=== PATIENT | male | born 1955 | race Caucasian/White ===

== ENCOUNTER 2020-05-05 10:02 | Outpatient (CLI) | payer MEDICARE, BC, SELFPAY ==
--- NOTE | ~2020-05-05 | XR_ITS ---
EXAMINATION: XR chest 2V EXAM DATE: 05/05/2020 10:22 INDICATION: Shortness of breath. TECHNIQUE: Frontal and lateral projections of the chest obtained and reviewed. There is no prior iron dy for comparison. FINDINGS: The lungs are clear. There are no pleural effusions. The cardiomediastinal silhouette is within normal limits. There is no pneumothorax suspected. Patient has diffuse idiopathic skeletal h yperostosis (DISH). IMPRESSION: No acute cardiopulmonary findings. Reviewed, dictated and finalized at location B.
--- NOTE | 2020-05-05 10:21 | ECG_ITS ---
Measurements Intervals [place] Rate: 59 P: 47 NE: 175 QRS: -19 QRSD: 95 T: 18 QT: 404 QTc: 402 Interpretive Statements SINUS BRADYCARDIA DELAYED PRECORDIAL R/S TRANSITION BORDERLINE T WAVE ABNORMALITY- INFERIOR LEADS BASELINE WANDER- V3 BORDERLINE ECG Electronically Signed On 05-05-2020 10:52:38 CDT by Kenneth Thomas D.O.
== END 2020-05-05 10:03 | disposition home or self-care (01) ==
PROVIDERS: PCP Family Medicine; Visit Provider Nurse Practitioner Family
DX: R73.03 Prediabetes (principal); R06.02 Shortness of breath; R06.00 Dyspnea, unspecified; R94.31 Abnormal electrocardiogram [ECG] [EKG]
CPT/HCPCS: 71046; 93005

== ENCOUNTER 2020-05-14 13:26 | Outpatient (CLI) | payer MEDICARE, BC, SELFPAY ==
--- NOTE | 2020-05-14 13:32 | ECHO_ITS ---
Patient Info Name: Jacob Palmer Age: 64 years : 1955 Gender: Male Ht: 66 in Wt: 243 lbs BSA: 2.32 m2 HR: 59 bpm BP: 150 / 96 mmHg Technical Quality: Good Exam Date: 05/14/2020 1:43 PM Exam Location: [facility] Patient Status: Outpatient Admit Date: 05/14/2020 Staff Ordering Physician: Karri Carlos NP Vice Admiral: Farshad Richardson RDCS, RT Attending Provider: Karri Carlos NP Referring Physician: Terrance KAY; Exam Type: CA echo doppler color flow Study Info Indications R06.02 - Shortness of breath Complete two-dimensional, color flow and Doppler transthoracic echocardiogram is performed. Summary 1. Complete two-dimensional, color flow and Doppler transthoracic echocardiogram is performed. 2. Left ventricular chamber dimension is normal. 3. Ventricular septum is sigmoid shaped. Very mild resting LVOT obstruction with peak gradient at 9 mmHg and mean gradient at 4 mmHg suggests hypertrophic cardiomyopathy. 4. Left ventricular systolic function is hyperdynamic, estimated at >70%. 5. There is mildly increased left ventricular wall thickness. 6. The left ventricular diastolic function is grade I diastolic dysfunction. 7. E/e' 12 is mildly elevated. 8. Global longitudinal strain is abnormal at -15.4%. 9. Left atrial chamber dimension is mildly enlarged. 10. The mitral valve has moderately calcified leaflets and moderately calcified posterior annulus. 11. No pulmonary hypertension, estimated pulmonary arterial systolic pressure is 36 mmHg. Left Ventricle E/e' 12 is mildly elevated. Global longitudinal strain is abnormal at -15.4%. Ventricular septum is sigmoid shaped. Very mild resting LVOT obstruction with peak gradient at 9 mmHg and mean gradient at 4 mmHg suggests hypertrophic cardiomyopathy. Left ventricular chamber dimension is normal. Left ventricular systolic function is hyperdynamic, estimated at >70%. There is mildly increased left ventricular wall thickness. The left ventricular diastolic function is grade I diastolic dysfunction. Right Ventricle Right ventricular chamber dimension is normal. Right ventricular systolic function is normal. Left Atria Left atrial chamber dimension is mildly enlarged. Right Atria Right atrial chamber dimension is normal. Aortic Valve There is no aortic valve stenosis based on valve area and gradients. Cannot determine number of aortic valve leaflets. The aortic valve is not well visualized. There is no aortic valve regurgitation. Pulmonic Valve There is no pulmonic regurgitation. Mitral Valve The mitral valve has moderately calcified leaflets and moderately calcified posterior annulus. There is no mitral valve stenosis. There is no mitral valve regurgitation. Tricuspid Valve There is no tricuspid valve regurgitation. No pulmonary hypertension, estimated pulmonary arterial systolic pressure is 36 mmHg. Pericardium/Pleural There is no pericardial effusion. Inferior Vena Cava Normal inferior vena cava with >50% collapse upon inspiration consistent with normal right atrial pressure, 5 mmHg. Aorta The aortic root size at the sinus of Valsalva is normal. Left Ventricular Outflow Tract Name Value Normal LVOT 2D
== END 2020-05-14 13:27 | disposition home or self-care (01) ==
LOC: ANHCARD 13:27
PROVIDERS: PCP Family Medicine; Visit Provider Nurse Practitioner Family
DX: R06.02 Shortness of breath (principal); R94.31 Abnormal electrocardiogram [ECG] [EKG]
CPT/HCPCS: 93306

== ENCOUNTER → 2021-05-04 03:21 | Outpatient (CLI) | payer MEDICARE, BC, SELFPAY ==
[2021-05-04 19:13] LABS: SARS-CoV-2 RNA PCR Negative
== END ==
PROVIDERS: PCP Family Medicine; Visit Provider Nurse Practitioner Family
DX: Z20.822 Contact with and (suspected) exposure to COVID-19 (principal)
CPT/HCPCS: C9803; U0003; U0005

== ENCOUNTER 2021-05-17 07:31 | Outpatient (CLI) | payer MEDICARE, BC, SELFPAY ==
--- NOTE | 2021-05-17 07:41 | ECHO_ITS ---
Patient Info Name: Jacob Palmer Age: 65 years : 1955 Gender: Male Ht: 66 in Wt: 238 lbs BSA: 2.29 m2 HR: 73 bpm BP: 120 / 74 mmHg Heart Rhythm: Atrial Fibrillation Technical Quality: Good Exam Date: 05/17/2021 7:56 AM Exam Location: [facility] Patient Status: Outpatient Admit Date: 05/17/2021 Staff Ordering Physician: Kenneth Thomas DO Teacher Dramatics: Geovanna Cisneros RDCS Attending Provider: Kenneth Thomas DO Referring Physician: William FISHER; Exam Type: CA echo doppler color flow Study Info Indications I51.7 - Cardiomegaly Complete two-dimensional, color flow and Doppler transthoracic echocardiogram is performed. Summary 1. Complete two-dimensional, color flow and Doppler transthoracic echocardiogram is performed. 2. Left ventricular chamber dimension is normal. 3. Left ventricular systolic function is normal, estimated at 60-65%. 4. There is mildly increased left ventricular wall thickness. 5. The left ventricular diastolic function is normal. 6. E/e' 7 is not elevated. 7. Atrial fibrillation. 8. Left atrial chamber dimension is mildly enlarged. 9. There is moderate aortic valve sclerosis. 10. The mitral valve has moderately calcified annulus. 11. There is trace mitral valve regurgitation. 12. No pulmonary hypertension, estimated pulmonary arterial systolic pressure is 27 mmHg. Left Ventricle Atrial fibrillation. E/e' 7 is not elevated. Left ventricular chamber dimension is normal. Left ventricular systolic function is normal, estimated at 60-65%. There is mildly increased left ventricular wall thickness. The left ventricular diastolic function is normal. Right Ventricle Right ventricular systolic function is normal and with normal TAPSE 1.8 cm. Right ventricular chamber dimension is normal. Left Atria Left atrial chamber dimension is mildly enlarged. Right Atria Right atrial chamber dimension is normal. Aortic Valve The aortic valve is trileaflet. There is moderate aortic valve sclerosis. There is no aortic valve stenosis. There is no aortic valve regurgitation. Pulmonic Valve There is no pulmonic regurgitation. Mitral Valve The mitral valve has moderately calcified annulus. There is no mitral valve stenosis. There is trace mitral valve regurgitation. Tricuspid Valve There is no tricuspid valve regurgitation. No pulmonary hypertension, estimated pulmonary arterial systolic pressure is 27 mmHg. Pericardium/Pleural There is no pericardial effusion. Inferior Vena Cava Normal inferior vena cava with >50% collapse upon inspiration consistent with normal right atrial pressure, 5 mmHg. Aorta The aortic root size at the sinus of Valsalva is normal. Left Ventricular Outflow Tract Name Value Normal LVOT 2D LVOT Diameter 2.0 cm LVOT Doppler LVOT Peak Gradient 6 mmHg LVOT Mean Gradient 3 mmHg LVOT VTI 27 cm LVOT VTI/AV VTI Ratio 1.0 LVOT Stroke Volume 82 ml LVOT CO
== END 2021-05-17 07:32 | disposition home or self-care (01) ==
LOC: ANHCARD 07:33
PROVIDERS: PCP Family Medicine; Visit Provider Internal Medicine Cardiovascular Disease
DX: I51.7 Cardiomegaly (principal); I48.91 Unspecified atrial fibrillation
CPT/HCPCS: 93306

== ENCOUNTER 2021-05-24 15:00 | Outpatient (CLI) | payer MEDICARE, BC, SELFPAY ==
--- NOTE | ~2021-05-24 | CT_ITS ---
EXAMINATION: CT abdomen pelvis w con DATE: 05/24/2021 15:35 INDICATION: Right lower quadrant pain TECHNIQUE: Computed tomography (CT) of the abdomen and pelvis was performed with 100 cc Omnipaque 350 intravenous contrast. The dose-length product was 1462.74 mGy-cm. Automated exposure control and ite rative reconstruction technique were employed. COMPARISON: CT dated 12/16/2016. FINDINGS: There is a 5 mm right middle lobe nodule. There is calcified nodule in the left lower lobe, consistent with chronic granulomatous disease. Small hiatal hernia. The spleen, pancreas, adrenal gl ands are unremarkable. Gallbladder is present. Normal appendix. There are bilateral renal cysts. Gallbladder is present. Fatty infiltration of the liver. There are l iver cysts. The spleen, pancreas, adrenal glands are unremarkable. Bowel pattern is nonobstructive. M oderate lumbar spondylosis with grade 1 degenerative spondylolisthesis. There is a 2 mm nonobstructin g left renal stone. No free air or free fluid. Bladder wall is mildly prominent, although not well di stended. IMPRESSION: 1. No acute abdominal abnormality. Normal appendix. 2: Right middle lobe nodule measuring 5 mm. Recommend follow-up low dose CT chest in 12 months. 3: Liver and renal cysts. 4: Nonobstructing left nephrolithiasis. 5: Mild bladder wall thickening which may be due to underdistention, although cystitis is not exclud ed. Consider correlation with urinalysis. Reviewed, dictated and finalized at location A. IMPRESSION: 1. No acute abdominal abnormality. Normal appendix. 2: Right middle lobe nodule measuring 5 mm. Recommend follow-up low dose CT [facility] in 12 months. 3: Liver and renal cysts. 4: Nonobstructing left nephrolithiasis. 5: Mild bladder wall thickening which may be due to underdistention, although cystitis is not excluded. Consider correlation with urinalysis.
[2021-05-24 15:32] LABS: Estimated Glomerular Filt Rate > 60
== END 2021-05-24 15:01 | disposition home or self-care (01) ==
LOC: ANHIMG 15:04
PROVIDERS: PCP Family Medicine; Visit Provider Nurse Practitioner Family
DX: R10.31 Right lower quadrant pain (principal); R91.1 Solitary pulmonary nodule; K76.89 Other specified diseases of liver; N28.1 Cyst of kidney, acquired; N20.0 Calculus of kidney; R93.41 Abnormal radiologic findings on diagnostic imaging of renal pelvis, ureter, or bladder
CPT/HCPCS: 74177; Q9967

== ENCOUNTER 2022-01-04 08:20 | Outpatient (CLI) | payer MEDICARE, BC, SELFPAY ==
--- NOTE | 2022-01-04 08:24 | EST_ITS ---
Patient Info Name: Jacob Palmer Age: 66 years : 1955 Gender: Male Ht: 68 in Wt: 268 lbs BSA: 2.47 m2 HR: 57 bpm BP: 144 / 79 mmHg Heart Rhythm: Sinus Rhythm Exam Date: 01/04/2022 8:45 AM Exam Location: [facility] Stress Patient Status: Outpatient Admit Date: 01/04/2022 Staff Ordering Physician: Kenneth Thomas DO Attending Provider: Kenneth Thomas DO Exercise Technologist: Kasey Martinez CT Exercise Physician: Kenneth Thomas DO Exam Type: CA stress test treadmill Study Info Indications R07.9 - Chest pain, unspecified A treadmill exercise stress test was performed. Summary 1. 1. Negative [place] exercise stress test for ischemic ST changes by ECG criteria. 2. 2. Reduced functional capacity, achieving 7.7 METs of workload. 3. 3. Baseline hypertension. 4. 4. Appropriate HR response to exercise. 5. 5. Appropriate HR recovery at 1 minute post exercise. 6. 6. No imaging with stress testing. 7. 7. Patient informed of the above results. Protocol: [place] Stress ECG Details Stage: REST Duration (min): 1 min : 27 sec Speed (mph): 0.0 Grade (%): 0 HR (bpm): 57 SBP (mmHg): 144 DBP (mmHg): 79 METS: --- Stage: REST Duration (min): 13 min : 57 sec Speed (mph): 0.0 Grade (%): 0 HR (bpm): 62 SBP (mmHg): 144 DBP (mmHg): 79 METS: --- Stage: STAGE 1 Duration (min): 1 min : 0 sec Speed (mph): 1.7 Grade (%): 10 HR (bpm): 82 SBP (mmHg): 144 DBP (mmHg): 79 METS: --- Stage: STAGE 1 Duration (min): 2 min : 0 sec Speed (mph): 1.7 Grade (%): 10 HR (bpm): 91 SBP (mmHg): 144 DBP (mmHg): 79 METS: --- Stage: STAGE 1 Duration (min): 3 min : 0 sec Speed (mph): 1.7 Grade (%): 10 HR (bpm): 96 SBP (mmHg): 156 DBP (mmHg): 69 METS: --- Stage: STAGE 2 Duration (min): 1 min : 0 sec Speed (mph): 2.5 Grade (%): 12 HR (bpm): 108 SBP (mmHg): 156 DBP (mmHg): 69 METS: --- Stage: STAGE 2 Duration (min): 2 min : 0 sec Speed (mph): 2.5 Grade (%): 12 HR (bpm): 116 SBP (mmHg): 156 DBP (mmHg): 69 METS: --- Stage: STAGE 2 Duration (min): 3 min : 0 sec Speed (mph): 2.5 Grade (%): 12 HR (bpm): 122 SBP (mmHg): 167 DBP (mmHg): 70 METS: --- Stage: STAGE 3 Duration (min): 0 min : 26 sec Speed (mph): 3.4 Grade (%): 14 HR (bpm): 133 SBP (mmHg): 167 DBP (mmHg): 70 METS: --- Stage: RECOVERY Duration (min): 0 min : 33 sec Speed (mph): 0.0 Grade (%): 0 HR (bpm): 116 SBP (mmHg): 167 DBP (mmHg): 70 METS: --- Stage: RECOVERY Duration (min): 1 min : 33 sec Speed (mph): 0.0 Grade (%): 0 HR (bpm): 86 SBP (mmHg): 169 DBP (mmHg): 72 METS: --- Stage: RECOVERY Duration (min): 2 min : 33 sec Speed (mph): 0.0 Grade (%): 0 HR (bpm): 71 SBP (mmHg): 169 DBP (mmHg): 72 METS: ---
== END 2022-01-04 08:21 | disposition home or self-care (01) ==
LOC: ANHCARD 08:22
PROVIDERS: PCP Family Medicine; Visit Provider Internal Medicine Cardiovascular Disease
DX: R07.89 Other chest pain (principal)
CPT/HCPCS: 93017

== ENCOUNTER 2023-10-04 00:19 | Day surgery (SDC) | payer MEDICARE, BC, SELFPAY ==
[2023-09-21 13:57] VITALS: BMI 40.4
--- NOTE | 2023-10-02 09:49 | SUR.PREOP ---
Patient called regarding upcoming procedure. Reviewed preop instructions, appointment times, and procedure prep.
[2023-10-04 07:41] VITALS: BP 141/82; PULSE 62; RESP 20; TEMP 36.3; O2SAT 98
[2023-10-04] MEDS: LACTATED RINGERS 1,000 ML 150 ML IV CONT (07:45)
[2023-10-04 07:53] LABS: Glucose Point of Care 127 mg/dl (65-105)
--- NOTE | 2023-10-04 08:16 | WPDANESEPPF ---
Anes - Initial Pre Proc Eval Procedure: Operation Date: 10/04/23 09:00 Proposed Procedures p Esophagogastroduodenoscopy & Colonoscopy - Rogelio Clay MD Date/Time: 10/04/23 08:16 Surgeon: Rogelio Clay MD Pre Op Diagnosis: neoplasm screening, Dysphagia Patient Data Age: 68 Gender: M Height: 1.68 m Weight: 106 kg Last Vital Signs Temp 97.4 F L 10/04/23 07:41 Pulse 62 10/04/23 07:41 Resp 20 10/04/23 07:41 BP 141/82 H 10/04/23 07:41 Pulse Ox 98 10/04/23 07:41 O2 Del Method Room Air 10/04/23 07:41 Allergies Allergy/AdvReac Type Severity Reaction Status Date / Time No Known Allergies Allergy Verified 10/04/23 07:39 Home Medications Medication Instructions Recorded Confirmed Type aspirin 325 mg tablet,delayed 325 mg PO DAILY 06/09/22 10/04/23 History release metoprolol succinate 25 mg See Rx Instructions .Route 01/18/23 10/04/23 Rx tablet,extended release 24 hr .COMPLEX #60 tabs rosuvastatin 40 mg tablet See Rx Instructions .Route 02/19/23 10/04/23 Rx .COMPLEX #90 tabs lisinopril 40 mg tablet See Rx Instructions .Route 06/20/23 10/04/23 Rx .COMPLEX #90 tabs dapagliflozin propanediol 10 mg 10 mg PO QAM #90 tabs 08/10/23 10/04/23 Rx tablet (Farxiga) levothyroxine 50 mcg tablet 50 mcg PO DAILY #90 tabs 08/18/23 10/04/23 Rx flecainide 100 mg tablet See Rx Instructions .Route 09/20/23 10/04/23 Rx .COMPLEX #60 tabs sildenafil 100 mg tablet 100 mg PO DIRECTED PRN Erectile 09/21/23 10/04/23 History Dysfunction Laboratory Tests 10/04/23 07:45 POC Capillary Glucose 127 H mg/dl (65-105) Patient hx anesthesia problems: none Family hx anesthesia problems: none Results Review: All pre-operative results and documents have been reviewed as part of the pre-operative evaluation. [facility] Past Medical History Medical History (Updated 08/10/23 @ 10:05 by Fab Chaparro MD) BMI 38.0-38.9,adult BMI 39.0-39.9,adult Dysphagia Lower abdominal pain Surgical History Surgical History (Updated 08/10/23 @ 09:08 by LAKISHA Lazaro) History of hernia repair Hx of colonoscopy Hx of prostatectomy Family History Family History (Updated 08/10/23 @ 09:10 by LAKISHA Lazaro) Sibling Diabetes mellitus Father Heart disease Acute myocardial infarction Mother Dementia Sibling Heart disease Diabetes mellitus Sibling , blood disease Diabetes mellitus Other Family history of allergic disorder Family history of cardiovascular disease Hypertension Malignant neoplasm of prostate Social History Social History (Updated 08/10/23 @ 09:10 by LAKISAH Lazaro) Social History: Cigars Years smoked: 45 Smoking status: Current some day smoker Tobacco type: cigars Second hand tobacco smoke exposure: No Additional smoking assessment comments: 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 Alcohol intake: current Substance use: never Substance use type: does not use Do You Feel Safe in your Home?: Yes Lack of Transportation: No Lack of Food: Never True Current Housing: I Have Housing Concerned About Future Housing: No Difficulty Paying Gas/Electric Bills: No Difficulty Paying for Meds: No Currently Unemployed: No Education: Trade/Vocational Certificate Difficulty w/ Childcare or Family Care: No Living arrangements: with family Occupation/Education: retired 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
--- NOTE | 2023-10-04 08:50 | PM.HPGS ---
History of Present Illness History of Present Illness Consent: Risks, benefits, and alternatives have been discussed and questions answered. Patient agrees to proceed with procedure. Chief complaint: neoplasm screening, Dysphagia Narrative: Jacob Palmer is a 68 year old male with colon polyp in 2019, also intermittent sensation of food getting stuck in chest, never had egd Review of Systems Constitutional: Constitutional: Denies headache(s) and Denies weakness Eyes: Eyes: Denies blurry vision ENT: Reports Normal hearing present, Denies headache(s) and Denies neck pain Cardiovascular: Cardiovascular: Denies chest pain and Denies dyspnea Respiratory: Respiratory: Denies dyspnea Gastrointestinal: Gastrointestinal: Reports no additional gastrointestinal complaints Genitourinary: Genitourinary: Denies dysuria Musculoskeletal: Musculoskeletal: Denies neck pain Integumentary/Breasts: Skin/Breast: Denies dry skin Neurologic: Reports Normal hearing present, Denies headache(s) and Denies weakness Psychiatric: Psychiatric: Denies anxiety Endocrine: Endocrine: Denies change in body appearance Hematologic/Lymphatic: Hematologic/Lymphatic: Denies easy bleeding Allergic/Immunologic: Allergic/Immunologic: Denies urticaria PMFSH Past Medical History Medical History (Updated 10/04/23 @ 08:51 by Rogelio Clay MD) BMI 38.0-38.9,adult BMI 39.0-39.9,adult Colon polyp Dysphagia Lower abdominal pain Surgical History Surgical History (Updated 08/10/23 @ 09:08 by LAKISHA Lazaro) History of hernia repair Hx of colonoscopy Hx of prostatectomy Family History Family History (Updated 08/10/23 @ 09:10 by LAKISHA Lazaro) Sibling Diabetes mellitus Father Heart disease Acute myocardial infarction Mother Dementia Sibling Heart disease Diabetes mellitus Sibling , blood disease Diabetes mellitus Other Family history of allergic disorder Family history of cardiovascular disease Hypertension Malignant neoplasm of prostate Social History Social History (Updated 08/10/23 @ 09:10 by LAKISHA Lazaro) Social History: Cigars Years smoked: 45 Smoking status: Current some day smoker Tobacco type: cigars Second hand tobacco smoke exposure: No Additional smoking assessment comments: 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 Alcohol intake: current Substance use: never Substance use type: does not use Do You Feel Safe in your Home?: Yes Lack of Transportation: No Lack of Food: Never True Current Housing: I Have Housing Concerned About Future Housing: No Difficulty Paying Gas/Electric Bills: No Difficulty Paying for Meds: No Currently Unemployed: No Education: Trade/Vocational Certificate Difficulty w/ Childcare or Family Care: No Living arrangements: with family Occupation/Education: retired 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[employer] Gender identity (if verbalized by the patient): Male Spiritual care concerns: No Meds Home Medications and Allergies Home Medications Medication Instructions Recorded Confirmed Type aspirin 325 mg tablet,delayed 325 mg PO DAILY 06/09/22 10/04/23 History release metoprolol succinate 25 mg See Rx Instructions .Route 01/18/23 10/04/23 Rx tablet,extended release 24 hr .COMPLEX #60 tabs rosuvastatin 40 mg tablet See Rx Instructions .Route 02/19/23 10/04/23 Rx .COMPLEX #90 tabs lisinopril 40 mg tablet See Rx Instructions .Route 06/20/23 10/04/23 Rx .COMPLEX #90 tabs dapagliflozin propanediol 10 mg 10 mg PO QAM #90 tabs 08/10/23 10/04/23 Rx tablet (Farxiga) levothyroxine 50 mcg tablet 50 mcg PO DAILY #90 tabs 08/18/23 10/04/23 Rx flecainide 100 mg tablet See Rx Instructions .Route 09/20/23 10/04/23 Rx .COMPLEX #60 tabs sildenafil 100 mg tablet 100 mg PO DIRECTED PRN Erectile 09/21/23 0
--- NOTE | 2023-10-04 09:12 | SUR.OPER ---
egd ended at 905 colonoscopy begun at 911
[2023-10-04 09:26] VITALS: BP 103/63; PULSE 53; RESP 13; O2SAT 98
[2023-10-04 09:36] VITALS: BP 100/64; PULSE 58; RESP 18; O2SAT 100
[2023-10-04 09:46] VITALS: BP 121/79; PULSE 52; RESP 14; O2SAT 100
== END 2023-10-04 09:59 | disposition home or self-care (01) ==
PROVIDERS: PCP Family Medicine; Visit Provider Internal Medicine Gastroenterology
PROC: 0DJ08ZZ Inspection of Upper Intestinal Tract, Via Natural or Artificial Opening Endoscopic (ICD-10-PCS; CPT 43235; principal; 2023-10-04 09:00)
DX: Z12.11 Encounter for screening for malignant neoplasm of colon (principal); R13.19 Other dysphagia; K21.00 Gastro-esophageal reflux disease with esophagitis, without bleeding; K22.2 Esophageal obstruction; K44.9 Diaphragmatic hernia without obstruction or gangrene; K29.50 Unspecified chronic gastritis without bleeding; D12.3 Benign neoplasm of transverse colon; K64.8 Other hemorrhoids; Z72.0 Tobacco use
CPT/HCPCS: 43239; 43249; 45380; 45385; 82948; 88305; C1726; J2001; J2704; J7120

== ENCOUNTER 2025-02-11 14:44 | Outpatient (CLI) | payer MEDICARE, BC, SELFPAY ==
--- NOTE | ~2025-02-11 | XR_ITS ---
3 VIEWS LUMBAR SPINE Ordering provider: Fab Chaparro MD History: . M47.816 - Spondylosis without myelopathy or radiculopathy... . Comparison: None. FINDINGS: VERTEBRAL BODIES:Minimal anterolisthesis at the level of L4-L5. Otherwise, No visible fracture or gabriel bluxation. Degenerative changes of the spine. DISK SPACES: Degenerative disc disease at the level of L4-L5. Multilevel facet joint disease. SOFT TISSUES: Atherosclerotic changes of aorta. IMPRESSION: No acute osseous abnormality lumbar spine. Anterolisthesis with degenerative disc disease at the level of L4-L5. Reviewed, dictated and finalized at location A.
== END 2025-02-11 14:45 | disposition home or self-care (01) ==
LOC: MICIMG 14:46
PROVIDERS: PCP Family Medicine; Visit Provider Family Medicine
DX: M43.16 Spondylolisthesis, lumbar region (principal)
CPT/HCPCS: 72114

== ENCOUNTER 2025-02-28 08:10 | Outpatient (CLI) | payer MEDICARE, BC, SELFPAY ==
--- NOTE | ~2025-02-28 | MR_ITS ---
MRI of the lumbar spine Clinical History: Spondylosis Technique: Axial T2-weighted images, and sagittal T1-weighted, T2-weighted, and T2 fat-sat images wer e acquired. Findings: No acute fracture seen. There is 7 mm anterolisthesis of L4 over L5. No bone marrow signal abnormality identified. At L1-L2, there is no disc bulge or herniation. There is moderate facet hypertrophy. No spinal canal stenosis or neural foraminal narrowing. At L2-L3, there is mild disc bulge with advanced facet arthropathy. No central canal stenosis. No def inite neural foraminal narrowing. At L3-L4, there is mild disc bulge with severe facet arthropathy. No central canal stenosis. There is mild to moderate left neural foraminal narrowing. Right neural foramen preserved. At L4-L5, there is disc bulge/uncovering with severe facet arthropathy, resulting in severe spinal ca nal stenosis/thecal sac compression. There is moderate to advanced bilateral neural foraminal narrowi ng, right worse than left. At L5-S1, there is no disc bulge or herniation. There is advanced facet arthropathy. No central canal stenosis. There is moderate right neural foraminal narrowing. Left neural foramen preserved. Paravertebral soft tissues are unremarkable. Impression: Severe degenerative spondylosis at L4-L5, with 7 mm anterolisthesis at this level. Overall mild degenerative changes in the remainder of the lumbar spine otherwise, as detailed above. Reviewed, dictated and finalized at [facility]. Impression: Severe degenerative spondylosis at L4-L5, with 7 mm anterolisthesis at this lev el. Overall mild degenerative changes in the remainder of the lumbar spine otherwis e, as detailed above.
== END 2025-02-28 08:11 | disposition home or self-care (01) ==
LOC: MICIMG 08:12
PROVIDERS: PCP Family Medicine; Visit Provider Family Medicine
DX: M47.816 Spondylosis without myelopathy or radiculopathy, lumbar region (principal); M43.16 Spondylolisthesis, lumbar region
CPT/HCPCS: 72148